=== PATIENT | female | born 1925 | race Caucasian/White ===

== ENCOUNTER 2017-04-16 22:50 | Inpatient (IN) ==
--- NOTE | 2017-04-16 23:02 | Emergency Department Note ---
Disposition Clinical Impression: Inability to perform activities of daily living Fall Qualifiers: Encounter type: initial encounter Qualified Code(s): W19.XXXA - Unspecified fall, initial encounter Dementia Qualifiers: Dementia type: unspecified type Dementia behavioral disturbance: without behavioral disturbance Qualified Code(s): F03.90 - Unspecified dementia without behavioral disturbance Disposition: Admitted As Inpatient Condition: Fair Referrals: Jay Jensen MD [Primary Care Provider] - Forms: ED Satisfaction Letter Time of Disposition: 01:55 Fall HPI - General Chief Complaint: ED Fall Stated Complaint: fall Time Seen by Provider: 04/16/17 22:52 Source: EMS Mode of arrival: EMS Limitations: other (baseline dementia) Nursing Notes Reviewed: Yes Vital Signs Reviewed: Yes - History of Present Illness HPI Narrative: Alert and nontoxic-appearing 89-year-old female is brought by EMS from a local assisted living facility for evaluation status post fall. EMS reports that the patient was found on the floor. The fall was unwitnessed. The patient is a very poor historian due to her baseline dementia. She has no complaints of pain at this time. I am unable to ascertain whether this was a mechanical fall or elsewise. She has an unknown LOC and it is unclear if there was any prolonged downtime. Pt Subjective Complaint: fall Fall Witnessed: no Place Fall Occurred: group home/SNF Loss of Consciousness: unsure Prolonged Down Time?: unclear - Related Data Home Medications Medication Instructions Recorded Confirmed Aspirin Enteric Coated [Aspirin EC] 81 mg PO DAILY 10/29/15 10/29/15 Cholecalciferol (D-3) [Vitamin D] 1,000 unit PO DAILY 10/29/15 10/29/15 Donepezil [Aricept] 5 mg PO HS 10/29/15 10/29/15 L. Acidophilus/Pectin, [place] 1 cap PO DAILY 10/29/15 10/29/15 [Acidophilus Probiotic Capsule] Losartan [Cozaar] 25 mg PO DAILY 10/29/15 10/29/15 Multivitamin [Multi-Day Vitamins] 1 tab PO DAILY 10/29/15 10/29/15 [place]-3/Dha/Epa/Fish Oil [Fish Oil 1,000 mg PO DAILY 10/29/15 10/29/15 1,000 mg Softgel] Polyethylene Glycol 3350 [MiraLAX] 17 gm PO DAILY 10/29/15 10/29/15 Potassium Gluconate 99 mg PO DAILY 10/29/15 10/29/15 Pravastatin Sodium [Pravachol] 40 mg PO DAILY 10/29/15 10/29/15 SitaGLIPtin [Januvia] 100 mg PO DAILY 10/29/15 10/29/15 Previous Rx's Medication Instructions Recorded LORazepam [Ativan] 0.5 mg PO HS #14 tablet 07/06/16 Acetaminophen [Tylenol] 500 mg PO Q6HR PRN #20 tablet 12/11/16 Allergies Allergy/AdvReac Type Severity Reaction Status Date / Time promethazine [From Phenergan] Allergy See Verified 04/16/17 22:51 Comments memantine AdvReac Shakiness Verified 07/05/16 22:16 Limitations: ROS unobtainable due to patients medical condition (Baseline dementia) Fall PMH - Past Medical History Medical history: Reports: dementia, diabetes, hyperlipidemia, hypertension Surgical history: Reports: hysterectomy Psychiatric history: Reports: no psych history - Social History Smoking Status: Never smoker Alcohol use: Reports: none Drug use: Reports: none Physical Exam - General Limitations: altered mental status General appearance: alert, in no apparent distress - Head Head exam: atraumatic, normocephalic, normal inspection - Expanded Head Exam Head exam physicial: Absent: laceration, abrasion, contusion, hematoma, raccoon eyes, Fuentes's sign - Eye Eye exam: Present: normal appearance, PERRL, EOMI. Absent: nystagmus - Expanded Eye Exam Pupils: Bilateral: regular, round, reactive, size (2) - Chest Chest inspection: Present: normal inspection, symmetric chest wall rise. Absent : tenderness - Respiratory Respiratory exam: Present: normal lung sounds bilaterally. Absent: respiratory distress, wheezes, stridor, accessory muscle use, prolonged expiratory phase - Cardiovascular Cardiovascular exam: Present: regular rate, normal rhythm, normal heart sounds - Abdominal Exam Abdominal exam: Present: soft, Non-Tender, normal bowel sounds - Extremities Exam Extremities exam: Present: normal inspection, full ROM. Absent: tenderness, pedal edema - Back Exam Back exam: Present: normal inspection. Absent: vertebral tenderness - Neurological Exam Neurological exam: Present: alert, oriented X3 - Psychiatric Psychiatric exam: Present: normal affect, normal mood - Skin Skin exam: Present: warm, dry, intact, normal color Course Course Narrative: CT of the abdomen and pelvis shows a large volume of stool in the rectum with findings Suggestive of stercoral colitis. And attempt was made to disimpact. No formed stool was present in the rectum. I have discussed this patient's case with Dr. Pitt. He suggests admission to the hospitalist service for further evaluation and probable social work consult, as the patient resides at an assisted living facility. I am concerned that the patient is unable to provide care of herself and perform essential activities of daily living due to her baseline dementia. 0154: I spoke with Dr. Duong, hospitalist animal control licensing worker. Dr. Duong has accepted the patient for admission under her care for further observation and evaluation of this presumed fall, as well as inability to perform activities of daily living. Vital Signs Temperature 98.7 F 04/16/17 22:55 Pulse Rate 73 04/16/17 22:55 Respiratory Rate 18 04/16/17 22:55 Blood Pressure 104/65 04/16/17 22:55 O2 Sat by Pulse Oximetry 90 04/16/17 22:55 Temperature 98.7 F 04/16/17 22:55 Pulse Rate 82 04/17/17 00:31 Respiratory Rate 20 04/17/17 00:31 Blood Pressure 150/89 04/17/17 00:31 O2 Sat by Pulse Oximetry 95 04/17/17 00:31 Oxygen Delivery Oxygen Delivery Room Air Fall - Medical Records Medical records reviewed: Yes I reviewed the patient's medical records. - Lab Data Lab results reviewed: Yes I reviewed the patient's lab results. Lab results narrative: Laboratory Last Values WBC 4.9 K/mcL (4.3-11.1) 04/16/17 23:33 RBC 4.21 M/mcL (3.82-4.97) 04/16/17 23:33 Hgb 12.4 g/dL (11.5-15.4) 04/16/17 23:33 Hct 38.6 % (35.3-44.9) 04/16/17 23:33 MCV 91.7 fL (83.0-100.0) 04/16/17 23:33 MCH 29.5 pg (28.0-33.3) 04/16/17 23:33 MCHC 32.1 g/dL (31.6-35.5) 04/16/17 23:33 RDW 12.9 % (11.5-14.5) 04/16/17 23:33 Plt Count 155 K/mcL (140-400) 04/16/17 23:33 MPV 10.9 fL (9.4-12.4) 04/16/17 23:33 Seg Neutrophils % 60.0 % 04/16/17 23:33 Lymphocytes % 22.0 % 04/16/17 23:33 Monocytes % 18.0 % 04/16/17 23:33 Neutrophils # 2.9 K/mcL (1.6-8.9) 04/16/17 23:33 Lymphocytes # 1.1 K/mcL (0.6-4.6) 04/16/17 23:33 Monocytes # 0.9 K/mcL (0.0-1.3) 04/16/17 23:33 Reactive Lymphocytes Present (Not Present) A 04/16/17 23:33 Platelet Estimate Normal (Normal) 04/16/17 23:33 PT 12.0 Seconds (9.4-12.1) 04/16/17 23:33 INR 1.1 04/16/17 23:33 APTT 32.2 Seconds (26.0-36.0) 04/16/17 23:33 Sodium 137 mEq/L (136-145) 04/16/17 23:33 Potassium 3.9 mEq/L (3.5-5.1) 04/16/17 23:33 Chloride 105 mEq/L (98-107) 04/16/17 23:33 Carbon Dioxide 29 mEq/L (23-29) 04/16/17 23:33 BUN 24 mg/dL (8-23) H 04/16/17 23:33 Creatinine 0.86 mg/dL (0.60-1.20) 04/16/17 23:33 Est GFR ( Amer) > 60 (> 60) 04/16/17 23:33 Est GFR (Non-Af Amer) > 60 (> 60) 04/16/17 23:33 BUN/Creatinine Ratio 28 (6-26) H 04/16/17 23:33 Glucose 117 mg/dL (70-105) H 04/16/17 23:33 Calculated Osmolality 289 (280-300) 04/16/17 23:33 Calcium 9.0 mg/dL (8.6-10.3) 04/16/17 23:33 Creatine Kinase 79 Units/L (30-223) 04/16/17 23:33 Troponin I < 0.03 ng/mL (< 0.04) 04/16/17 23:33 Urine Color Yellow (Yellow) 04/17/17 00:00 Urine Clarity Cloudy (Clear) A 04/17/17 00:00 Urine pH 6.5 pH Units (5.0-8.0) 04/17/17 00:00 Ur Specific [place] 1.023 (1.010-1.025) 04/17/17 00:00 Urine Protein Negative mg/dL (Neg-Trace) 04/17/17 00:00 Urine Glucose (UA) Normal mg/dL (Normal) 04/17/17 00:00 Urine Ketones Negative mg/dL (Negative) 04/17/17 00:00 Urine Blood Trace (Negative) H 04/17/17 00:00 Urine Nitrite Negative (Negative) 04/17/17 00:00 Urine Bilirubin Negative (Negative) 04/17/17 00:00 Urine Urobilinogen Normal mg/dL (Normal) 04/17/17 00:00 Ur Leukocyte Esterase Moderate (Negative) H 04/17/17 00:00 Urine Microscopic RBC 5-15 per hpf (0-3) H 04/17/17 00:00 Urine Microscopic WBC 50-100 per hpf (0-3) H 04/17/17 00:00 Ur Squamous Epith Cells Many per lpf (None-Few) H 04/17/17 00:00 Ur Renal Epithelial Cell Few per hpf (None-Few) 04/17/17 00:00 Urine Bacteria None Seen per hpf (None-Few) 04/17/17 00:00 Hyaline Casts Moderate per lpf (None-Few) H 04/17/17 00:00 Ur Culture Indicated? NO (NO) 04/17/17 00:00 Result diagrams: 04/16/17 23:33 04/16/17 23:33 Lab Results 04/16/17 04/16/17 04/16/17 Range/Units 23:33 23:33 23:33 WBC 4.9 (4.3-11.1) K/mcL RBC 4.21 (3.82-4.97) M/mcL Hgb 12.4 (11.5-15.4) g/dL Hct 38.6 (35.3-44.9) % MCV 91.7 (83.0-100.0) fL MCH 29.5 (28.0-33.3) pg MCHC 32.1 (31.6-35.5) g/dL RDW 12.9 (11.5-14.5) % Plt Count 155 (140-400) K/mcL MPV 10.9 (9.4-12.4) fL Seg Neutrophils % 60.0 % Lymphocytes % 22.0 % Monocytes % 18.0 % Neutrophils # 2.9 (1.6-8.9) K/mcL Lymphocytes # 1.1 (0.6-4.6) K/mcL Monocytes # 0.9 (0.0-1.3) K/mcL Reactive Lymphocytes Present A (Not Present) Platelet Estimate Normal (Normal) PT 12.0 (9.4-12.1) Seconds INR 1.1 APTT 32.2 (26.0-36.0) Seconds Sodium 137 (136-145) mEq/L Potassium 3.9 (3.5-5.1) mEq/L Chloride 105 (98-107) mEq/L Carbon Dioxide 29 (23-29) mEq/L BUN 24 H (8-23) mg/dL Creatinine 0.86 (0.60-1.20) mg/dL Est GFR ( Amer) > 60 (> 60) Est GFR (Non-Af Amer) > 60 (> 60) BUN/Creatinine Ratio 28 H (6-26) Glucose 117 H (70-105) mg/dL Calculated Osmolality 289 (280-300) Calcium 9.0 (8.6-10.3) mg/dL Creatine Kinase (30-223) Units/L Troponin I (< 0.04) ng/mL Urine Color (Yellow) Urine Clarity (Clear) Urine pH (5.0-8.0) pH Units Ur Specific [place] (1.010-1.025) Urine Protein (Neg-Trace) mg/dL Urine Glucose (UA) (Normal) mg/dL Urine Ketones (Negative) mg/dL Urine Blood (Negative) Urine Nitrite (Negative) Urine Bilirubin (Negative) Urine Urobilinogen (Normal) mg/dL Ur Leukocyte Esterase (Negative) Urine Microscopic RBC (0-3) per hpf Urine Microscopic WBC (0-3) per hpf Ur Squamous Epith Cells (None-Few) per lpf Ur Renal Epithelial Cell (None-Few) per hpf Urine Bacteria (None-Few) per hpf Hyaline Casts (None-Few) per lpf Ur Culture Indicated? (NO) 04/16/17 04/16/17 04/17/17 Range/Units 23:33 23:33 00:00 WBC (4.3-11.1) K/mcL RBC (3.82-4.97) M/mcL Hgb (11.5-15.4) g/dL Hct (35.3-44.9) % MCV (83.0-100.0) fL MCH (28.0-33.3) pg MCHC (31.6-35.5) g/dL RDW (11.5-14.5) % Plt Count (140-400) K/mcL MPV (9.4-12.4) fL Seg Neutrophils % % Lymphocytes % % Monocytes % % Neutrophils # (1.6-8.9) K/mcL Lymphocytes # (0.6-4.6) K/mcL Monocytes # (0.0-1.3) K/mcL Reactive Lymphocytes (Not Present) Platelet Estimate (Normal) PT (9.4-12.1) Seconds INR APTT (26.0-36.0) Seconds Sodium (136-145) mEq/L Potassium (3.5-5.1) mEq/L Chloride (98-107) mEq/L Carbon Dioxide (23-29) mEq/L BUN (8-23) mg/dL Creatinine (0.60-1.20) mg/dL Est GFR ( Amer) (> 60) Est GFR (Non-Af Amer) (> 60) BUN/Creatinine Ratio (6-26) Glucose (70-105) mg/dL Calculated Osmolality (280-300) Calcium (8.6-10.3) mg/dL Creatine Kinase 79 (30-223) Units/L Troponin I < 0.03 (< 0.04) ng/mL Urine Color Yellow (Yellow) Urine Clarity Cloudy A (Clear) Urine pH 6.5 (5.0-8.0) pH Units Ur Specific [place] 1.023 (1.010-1.025) Urine Protein Negative (Neg-Trace) mg/dL Urine Glucose (UA) Normal (Normal) mg/dL Urine Ketones Negative (Negative) mg/dL Urine Blood Trace H (Negative) Urine Nitrite Negative (Negative) Urine Bilirubin Negative (Negative) Urine Urobilinogen Normal (Normal) mg/dL Ur Leukocyte Esterase Moderate H (Negative) Urine Microscopic RBC 5-15 H (0-3) per hpf Urine Microscopic WBC 50-100 H (0-3) per hpf Ur Squamous Epith Cells Many H (None-Few) per lpf Ur Renal Epithelial Cell Few (None-Few) per hpf Urine Bacteria None Seen (None-Few) per hpf Hyaline Casts Moderate H (None-Few) per lpf Ur Culture Indicated? NO (NO) - Radiology Data Radiology results reviewed: Yes I reviewed the patient's radiology results. Chest X-Ray 04/16/17 22:57 IMPRESSION: No acute disease. D/ / Rodrigue Ruiz MD / Rodrigue Ruiz MD Interpreting Provider: Rodrigue Ruiz MD Head CT 04/16/17 22:57 IMPRESSION: No acute intracranial abnormality. D/ / Holland Nevarez MD / Holland Nevarez MD Interpreting Provider: Holland Nevarez MD Pelvis X-Ray 04/16/17 22:57 IMPRESSION: No definite fracture. D/ / Rodrigue Ruiz MD / Rodrigue Ruiz MD Interpreting Provider: Rodrigue Ruiz MD Cervical Spine CT 04/16/17 23:00 IMPRESSION: No acute abnormality of the cervical spine. D/ / Rodrigue Ruiz MD / Rodrigue Ruiz MD Interpreting Provider: Rodrigue Ruiz MD Abdomen/Pelvis CT 04/16/17 23:25 IMPRESSION: No acute abnormality detected within the abdomen pelvis. Evidence of rectal impaction. Despite that there is a mild mural thickening of the rectum, suggesting stercoral colitis. Stable abdominal aortic aneurysm. Recommendations below. RECOMMENDATIONS: Managing Abdominal Aortic Aneurysms 3.5-3.9 cm: Imaging surveillance every 1 year. Reference: J Vasc Surg. 2008;50(4 Suppl):S2-49 D/ / Holland Nevarez MD / Holland Nevarez MD Interpreting Provider: Holland Nevarez MD - EKG Data EKG attestation: Yes I reviewed and interpreted this EKG. EKG results narrative: EKG reviewed by Dr. Pitt as well. EKG shows a sinus rhythm with left axis deviation and a right bundle branch block at a rate of 74 bpm. NC interval 194 , QRS duration 126, QT/QTc interval 409/436. No ectopy noted. No STEMI. No significant changes when compared to an EKG dated 07/05/16. Attestation Statement - Attestation Attestation: I, Fidel Pitt DO have provided [id number] time during the care of this patient. Detailed review the presentation, symptoms, medical history were discussed and reviewed with the mid-level provider Migel Ogden PA-C/[place]. Medical intervention labs and imaging studies were reviewed in detail. See full documentation of physical exam and course of care in the mid-level provider's note. I agree with the determined course of care, medical intervention and disposition put forth by the mid-level provider. See below documentation for changes or alterations in documentation. 89-year-old female presents from group home for evaluation of a fall. Patient had unwitnessed fall at the nursing facility. She was on the ground. There is no visible signs of trauma or injury. She is complaining of pain at that time. Patient has unknown medical history this point except for records that were collected and transported EMS. Because the patient's presentation CT imaging of the head and neck as well as abnormal be completed on plain films of the pelvis. Physical exam is otherwise unremarkable. Head is atraumatic pupils are equal and reactive to light affected muscles are intact. Oropharynx is patent trachea is midline she has no specific point tenderness over the cervical thoracic or lumbar spine. She has no tenderness to palpation of the chest wall. Lungs are clear heart is regular abdomen is soft but she does describe some discomfort with palpation. Hips appear to be stable she has no gross deformity or injury to lower extremities with normal sensation according to her. Patient has a baseline dementia so is difficult ascertain for physical exam or presenting issue. Imaging modality along with laboratory screening workup and evaluation to be completed. Patient will most likely had disposition established once imaging modalities workup are resulted. See detailed documentation of physical exam, medical intervention medical decision making and disposition of the mid-level provider's note.
[2017-04-16 23:41] LABS: Hematocrit 38.6 % (35.3-44.9); Hemoglobin 12.4 g/dL (11.5-15.4); Mean Corpuscular HGB Conc 32.1 g/dL (31.6-35.5); Mean Corpuscular Hemoglobin 29.5 pg (28.0-33.3); Mean Corpuscular Volume 91.7 fL (83.0-100.0); Mean Platelet Volume 10.9 fL (9.4-12.4); Neutrophils # 2.9 K/mcL (1.6-8.9); Platelet Count 155 K/mcL (140-400); Red Blood Count 4.21 M/mcL (3.82-4.97); Red Cell Distribution Width 12.9 % (11.5-14.5)
[2017-04-16 23:47] LABS: INR 1.1
[2017-04-16 23:49] LABS: Activated Partial Thrombo Time 32.2 Seconds (26.0-36.0)
[2017-04-17 00:01] LABS: BUN/Creatinine Ratio 28 (6-26); Blood Urea Nitrogen 24 mg/dL (8-23); Carbon Dioxide 29 mEq/L (23-29); Chloride 105 mEq/L (98-107); Glucose 117 mg/dL (70-105); Osmolality,Calculated 289 (280-300); Potassium 3.9 mEq/L (3.5-5.1); Sodium 137 mEq/L (136-145); eGFR For African Americans > 60 (> 60); eGFR For Non-African Americans > 60 (> 60)
[2017-04-17 00:03] LABS: Lymphocytes # 1.1 K/mcL (0.6-4.6); Monocytes # 0.9 K/mcL (0.0-1.3)
[2017-04-17 00:04] LABS: Platelet Estimate Normal (Normal); Reactive Lymphocytes Present (Not Present)
[2017-04-17 00:18] LABS: Bilirubin,Urine Negative (Negative); Blood,Urine Trace (Negative); Clarity,Urine Cloudy (Clear); Color,Urine Yellow (Yellow); Glucose,Urine (UA) Normal (Normal); Ketones,Urine Negative (Negative); Leukocyte Esterase,Urine Moderate (Negative); Nitrite,Urine Negative (Negative); PH,Urine 6.5 pH Units (5.0-8.0); Protein,Urine Negative (Neg-Trace); Specific Gravity,Urine 1.023 (1.010-1.025); Urobilinogen,Urine Normal (Normal)
[2017-04-17 00:20] LABS: Bacteria,Urine None Seen per hpf (None-Few); Hyaline Casts,Urine Moderate per lpf (None-Few); Squamous Epithelial Cell,Urine Many per lpf (None-Few); WBC,Urine 50-100 per hpf (0-3)
[2017-04-17 00:34] LABS: Renal Epithelial Cells,Urine Few per hpf (None-Few)
[2017-04-17] MEDS ORDERED: Naloxone 0.4 MG/ML INJ IVP PRN (02:41)
[2017-04-17] MEDS ORDERED: Acetaminophen 325 MG TABLET PO PRN (02:43)
[2017-04-17] MEDS ORDERED: Dextrose Gel 15 GM/37.5 ML TUBE PO PRN ×2 (02:46)
[2017-04-17] MEDS ORDERED: *HR* Dextrose 50 % in Water (Syg) 50 ML SYRINGE IVP PRN (02:46)
[2017-04-17] MEDS ORDERED: D5% in Water 1,000 ML IVC PRN (02:46)
[2017-04-17] MEDS ORDERED: *HR* LORazepam 0.5 MG TABLET PO PRN (02:47)
--- NOTE | 2017-04-17 02:57 | Internal Med History&Physical ---
Date of Encounter: 04/17/17 Time of Encounter: 02:00 Assessment and Plan (1) Dementia Current visit: Yes Status: Acute Cont home med. Fall precautions. Qualifiers: Dementia type: unspecified type Dementia behavioral disturbance: without behavioral disturbance Qualified Code(s): F03.90 - Unspecified dementia without behavioral disturbance (2) Discharge planning issues Current visit: No Status: Acute Pt may need ECF for fci care. Place PT/OT and SW consult. (3) DVT prophylaxis Current visit: No Status: Acute EPCD. No AC b/o fall. (4) Fall Current visit: Yes Status: Acute Pt was found on floor. CK level WNL. - Fall precaution. - Pt seems on pain on passively move her limb. CT head, neck, XR chest and pelvis negative far acute fracture. - PT/OT and SW consult for placement. - Repeat CK in AM Qualifiers: Encounter type: initial encounter Qualified Code(s): W19.XXXA - Unspecified fall, initial encounter (5) UTI (urinary tract infection) Current visit: Yes Status: Acute Pt cannot define symptomatic or asymptomatic. No WBC elevation. Empirically place rocephin iv for 3 days. Qualifiers: Urinary tract infection type: acute cystitis Hematuria presence: without hematuria Qualified Code(s): N30.00 - Acute cystitis without hematuria (6) Constipation Current visit: Yes Status: Acute CT abd shows rectal stool impact. Cont home med miralax. Lactulose po once. Consider enema if pt has no BM. Qualifiers: Constipation type: other constipation type Qualified Code(s): K59.09 - Other constipation Internal Medicine - H&P: HPI Chief complaint: Fall Admitted From: Long-term Nursing Facility Plans for Post Hospital Care: Transfer Long-Term Facility History of present illness: Ms. Smith is a 89 year old female with severe dementia sent [facility] from [facility] for unwitnessed fall. Pt is demented and no family members at bedside. Hx is from transfer documentation. Pt has fall and was found on floor today. Not know for how long pt is down. Pt looks comfortable when I saw her. Awake, alert but totally disoriented. Seems no pain on physical exam. According to transfer documentation, pt is DNR, but not sprecified if pt is DNI. Will place DNRCCA at this point. Past Med Surg Social Fam HX - Past Medical History Medical history: dementia, diabetes, hyperlipidemia, hypertension Psychiatric history: no psych history - Past Surgical History Surgical History: hysterectomy - Social History Smoking Status: Never smoker Smokeless Tobacco Status: No Alcohol use: none Drug use: none - Family History Father Living Status: Hx Family Cardiac Disorders: Yes (Stroke) Mother Family Member Ethnicity: Non- Living Status: Internal Medicine - H&P: Meds Aspirin Enteric Coated [Aspirin EC] 81 mg PO DAILY 10/29/15 [History] Cholecalciferol (D-3) [Vitamin D] 1,000 unit PO DAILY 10/29/15 [History] L. Acidophilus/Pectin, [place] [Acidophilus Probiotic Capsule] 1 cap PO DAILY 02/03 [History] Multivitamin [Multi-Day Vitamins] 1 tab PO DAILY 10/29/15 [History] Polyethylene Glycol 3350 [MiraLAX] 17 gm PO DAILY 10/29/15 [History] Acetaminophen [Tylenol] 500 mg PO Q6HR PRN #20 tablet 12/11/16 [Rx] Citalopram [CeleXA] 20 mg PO DAILY 04/17/17 [History] LORazepam [Ativan] 0.5 mg PO HS PRN 04/17/17 [History] Pravastatin Sodium [Pravachol] 40 mg PO HS 04/17/17 [History] 3 Allergy/AdvReac Type Severity Reaction Status Date / Time promethazine [From Phenergan] Allergy See Verified 04/16/17 22:51 Comments memantine AdvReac Shakiness Verified 07/05/16 22:16 All Systems PM: A 10-system review of systems was performed and is negative for pertinent findings except as documented above in the HPI. - Constitutional Vitals: Temp Pulse Resp BP Pulse Ox 98.7 F 79 16 129/80 92 04/16/17 22:55 04/17/17 01:58 04/17/17 02:40 04/17/17 02:40 04/17/17 01:58 General appearance: Present: A&O X 0, pleasant, no acute distress - Head Head exam: Present: atraumatic, normocephalic - Eye Eye exam: Present: PERRL, conjuntiva pink, sclera anicteric Pupils: Present: PERRL - Neck Neck exam general surgery: Present: supple, trachea midline. Absent: lymphadenopathy - Respiratory Respiratory exam: Present: CTAB. Absent: accessory muscle use, rales, rhonchi, wheezes - Cardiovascular Cardiovascular exam: Present: RRR, +S1, +S2. Absent: diastolic murmur, gallop, rubs, systolic murmur - GI/Abdominal GI/Abdominal exam: Present: normal bowel sounds, soft, no peritoneal signs. Absent: distended, tenderness - Extremities Exam Extremities exam: Present: warm, radial pulses palpable and symmetrical. Absent : calf tenderness, cyanotic, pedal edema - Neurological Exam Neurological exam: Present: CN II-XII intact, oriented X3, no focal deficits. Absent: pronater drift, facial droop, speech deficit - Skin Skin exam: Present: dry, intact Internal Med - H&P Results - Labs CBC & Chem 7: 04/16/17 23:33 04/16/17 23:33 - EKG Data -: EKG Interpreted by Myself (RBBB, no change with previous EKG.) EKG shows normal: sinus rhythm
[2017-04-17] MEDS ORDERED: Lactulose Oral Soln 20 GM/30 ML UDC PO ONE (03:07)
[2017-04-17] MEDS: 0.9 % Sodium Chloride 1,000 ML IVC SCH ×2 (04:00→22:13)
[2017-04-17] MEDS: cefTRIAXone 1,000 MG in Water for inj. (sterile) 10 ML IVP SCH (04:01)
[2017-04-17 06:07] LABS: Hematocrit 37.8 % (35.3-44.9); Hemoglobin 12.4 g/dL (11.5-15.4); Mean Corpuscular HGB Conc 32.8 g/dL (31.6-35.5); Mean Corpuscular Volume 91.3 fL (83.0-100.0); Mean Platelet Volume 11.2 fL (9.4-12.4); Platelet Count 154 K/mcL (140-400); Red Blood Count 4.14 M/mcL (3.82-4.97); Red Cell Distribution Width 12.9 % (11.5-14.5)
[2017-04-17 06:26] LABS: BUN/Creatinine Ratio 29 (6-26); Blood Urea Nitrogen 21 mg/dL (8-23); Calcium 8.7 mg/dL (8.6-10.3); Carbon Dioxide 26 mEq/L (23-29); Chloride 107 mEq/L (98-107); Glucose 114 mg/dL (70-105); Osmolality,Calculated 290 (280-300); Potassium 3.7 mEq/L (3.5-5.1); Sodium 138 mEq/L (136-145); eGFR For African Americans > 60 (> 60); eGFR For Non-African Americans > 60 (> 60)
[2017-04-17] MEDS ORDERED: Insulin LISPRO 300 UNITS/3 ML VIAL SQ SCH (07:30)
[2017-04-17 07:51] LABS: Lymphocytes # 0.5 K/mcL (0.6-4.6); Monocytes # 0.3 K/mcL (0.0-1.3); Neutrophils # 3.6 K/mcL (1.6-8.9)
[2017-04-17 07:52] LABS: Platelet Estimate Normal (Normal)
[2017-04-17] MEDS: Multivit/Ca/Min/Fe/FA 1 TAB TABLET PO SCH (09:11)
[2017-04-17] MEDS: Lactobacillus 1 EACH CAP.SPRINK PO SCH (09:11)
[2017-04-17] MEDS: Aspirin Enteric Coated 81 MG Tablet PO SCH (09:11)
[2017-04-17] MEDS: Cholecalciferol (D-3) 1,000 UNIT TABLET PO SCH (09:11)
[2017-04-18] MEDS: cefTRIAXone 1,000 MG in Water for inj. (sterile) 10 ML IVP SCH (02:41)
[2017-04-18 05:59] LABS: Hemoglobin 12.3 g/dL (11.5-15.4); Mean Corpuscular HGB Conc 32.4 g/dL (31.6-35.5); Mean Corpuscular Hemoglobin 29.2 pg (28.0-33.3); Mean Corpuscular Volume 90.3 fL (83.0-100.0); Mean Platelet Volume 10.9 fL (9.4-12.4); Platelet Count 135 K/mcL (140-400); Red Blood Count 4.21 M/mcL (3.82-4.97); Red Cell Distribution Width 13.1 % (11.5-14.5)
[2017-04-18 06:03] LABS: BUN/Creatinine Ratio 25 (6-26); Blood Urea Nitrogen 15 mg/dL (8-23); Calcium 8.3 mg/dL (8.6-10.3); Carbon Dioxide 23 mEq/L (23-29); Chloride 104 mEq/L (98-107); Glucose 114 mg/dL (70-105); Osmolality,Calculated 280 (280-300); Potassium 3.8 mEq/L (3.5-5.1); Sodium 134 mEq/L (136-145); eGFR For African Americans > 60 (> 60); eGFR For Non-African Americans > 60 (> 60)
[2017-04-18 07:20] LABS: Platelet Estimate Slight Decrease (Normal)
[2017-04-18 07:22] LABS: Lymphocytes # 1.1 K/mcL (0.6-4.6); Monocytes # 0.8 K/mcL (0.0-1.3); Neutrophils # 2.4 K/mcL (1.6-8.9)
[2017-04-18 07:23] LABS: Reactive Lymphocytes Present (Not Present)
[2017-04-18] MEDS: Multivit/Ca/Min/Fe/FA 1 TAB TABLET PO SCH (09:20)
[2017-04-18] MEDS: Cholecalciferol (D-3) 1,000 UNIT TABLET PO SCH (09:20)
[2017-04-18] MEDS: Lactobacillus 1 EACH CAP.SPRINK PO SCH (09:20)
[2017-04-18] MEDS: Aspirin Enteric Coated 81 MG Tablet PO SCH (09:20)
--- NOTE | 2017-04-18 09:31 | Electrocardiograph Report ---
[address] [address] Test Date: 2017-04-16 Pat Name: Misty Smith Department: 104 Room: 3A52 Gender: F [employer] Leasing [employer]: : [id number] Requested By: Sarah Blankenship Order Number: [id number] Reading MD: Suad Alanis Measurements Intervals [place] Rate: 74 P: 74 MA: 194 QRS: -43 QRSD: 126 T: -12 QT: 409 QTc: 436 Interpretive Statements SINUS RHYTHM LEFT AXIS DEVIATION RIGHT BUNDLE BRANCH BLOCK Electronically Signed On 04-18-2017 9:30:14 EST by Suad Alanis
[2017-04-18] MEDS: Ipratropium/Albuterol Neb 3 ML IH SCH ×2 (15:43→21:10)
--- NOTE | 2017-04-18 17:24 | Internal Med Progress Note ---
Date of Encounter: 04/18/17 Time of Encounter: 17:22 - Assessment and plan (1) Dementia Current Visit: Yes Status: Acute Assessment and plan: Stable at patient's baseline. Patient came from assisted living but she needs placement. Qualifiers: Dementia type: unspecified type Dementia behavioral disturbance: without behavioral disturbance Qualified Code(s): F03.90 - Unspecified dementia without behavioral disturbance (2) Discharge planning issues Current Visit: No Status: Acute Assessment and plan: PT/OT recs SNF/ECF. Pending placement. (3) UTI (urinary tract infection) Current Visit: Yes Status: Acute Assessment and plan: Rocephin for toal 3 days therapy. Qualifiers: Urinary tract infection type: acute cystitis Hematuria presence: without hematuria Qualified Code(s): N30.00 - Acute cystitis without hematuria (4) Constipation Current Visit: Yes Status: Acute Assessment and plan: CT abdomen/pelvis notes fecal impaction. I did digital rectal exam today and there was no fecal impaction appreciated. This may have resolved after getting bowel prep. Qualifiers: Constipation type: other constipation type Qualified Code(s): K59.09 - Other constipation (5) DVT prophylaxis Current Visit: No Status: Acute Assessment and plan: SCD - Subjective Interval history: No acute events. - Constitutional Vitals: Temp Pulse Resp BP Pulse Ox 98 F 72 18 146/78 93 04/18/17 15:56 04/18/17 15:56 04/18/17 15:56 04/18/17 15:56 04/18/17 15:56 General appearance: Present: A&O X 1, pleasant, no acute distress Exam: - Head Head exam: Present: atraumatic, normocephalic - Eye Eye exam: Present: PERRL, conjuntiva pink, sclera anicteric Pupils: Present: PERRL - Neck Neck exam general surgery: Present: supple, trachea midline. Absent: lymphadenopathy - Respiratory Respiratory exam: Present: CTAB. Absent: accessory muscle use, rales, rhonchi, wheezes - Cardiovascular Cardiovascular exam: Present: RRR, +S1, +S2. Absent: diastolic murmur, gallop, rubs, systolic murmur - GI/Abdominal GI/Abdominal exam: Present: normal bowel sounds, soft, no peritoneal signs. Absent: distended, tenderness - Extremities Exam Extremities exam: Present: warm, radial pulses palpable and symmetrical. Absent : calf tenderness, cyanotic, pedal edema - Neurological Exam Neurological exam: Present: CN II-XII intact, oriented X3, no focal deficits. Absent: pronater drift, facial droop, speech deficit - Skin Skin exam: Present: dry, intact Internal Medicine: Result - Labs CBC & Chem 7: 04/18/17 05:29 04/18/17 05:29 Labs: Short CBC 04/18/17 Range/Units 05:29 WBC 4.2 L (4.3-11.1) K/mcL Hgb 12.3 (11.5-15.4) g/dL Hct 38.0 (35.3-44.9) % Plt Count 135 L (140-400) K/mcL Neutrophils # 2.4 (1.6-8.9) K/mcL BMP 04/18/17 05:29 Sodium 134 L Potassium 3.8 Chloride 104 Carbon Dioxide 23 BUN 15 Creatinine 0.61 Glucose 114 H Calcium 8.3 L - ABG Interpretation ABG results: PT/INR, D-dimer PT 12.0 Seconds (9.4-12.1) 04/16/17 23:33 - VTE Documentation of Mechanical Device: Intermittent pneumatic compression device Consult Discharge Plan - Plan Referrals: Jay Jensen MD [Primary Care Provider] - 04/29/17 2:00 am
[2017-04-18] MEDS: Insulin LISPRO 300 UNITS/3 ML VIAL SQ SCH ×2 (19:24→20:44)
[2017-04-18] MEDS: 0.9 % Sodium Chloride 1,000 ML IVC SCH (19:28)
[2017-04-19] MEDS: cefTRIAXone 1,000 MG in Water for inj. (sterile) 10 ML IVP SCH (03:11)
[2017-04-19] MEDS: Ipratropium/Albuterol Neb 3 ML IH SCH ×4 (04:44→22:13)
[2017-04-19] MEDS: Insulin LISPRO 300 UNITS/3 ML VIAL SQ SCH ×4 (08:16→21:41)
[2017-04-19] MEDS: Multivit/Ca/Min/Fe/FA 1 TAB TABLET PO SCH (08:23)
[2017-04-19] MEDS: Cholecalciferol (D-3) 1,000 UNIT TABLET PO SCH (08:23)
[2017-04-19] MEDS: Lactobacillus 1 EACH CAP.SPRINK PO SCH (08:23)
[2017-04-19] MEDS: Aspirin Enteric Coated 81 MG Tablet PO SCH (08:23)
--- NOTE | 2017-04-19 23:48 | Internal Med Progress Note ---
Date of Encounter: 04/19/17 Time of Encounter: 11:46 - Assessment and plan (1) Dementia Current Visit: Yes Status: Acute Assessment and plan: Stable at patient's baseline. Patient came from assisted living but she needs placement. Qualifiers: Dementia type: unspecified type Dementia behavioral disturbance: without behavioral disturbance Qualified Code(s): F03.90 - Unspecified dementia without behavioral disturbance (2) Discharge planning issues Current Visit: No Status: Acute Assessment and plan: PT/OT recs SNF/ECF. Pending placement. (3) UTI (urinary tract infection) Current Visit: Yes Status: Acute Assessment and plan: Rocephin for toal 3 days therapy. Qualifiers: Urinary tract infection type: acute cystitis Hematuria presence: without hematuria Qualified Code(s): N30.00 - Acute cystitis without hematuria (4) Constipation Current Visit: Yes Status: Acute Assessment and plan: CT abdomen/pelvis notes fecal impaction. I did digital rectal exam today and there was no fecal impaction appreciated. This may have resolved after getting bowel prep. Qualifiers: Constipation type: other constipation type Qualified Code(s): K59.09 - Other constipation (5) DVT prophylaxis Current Visit: No Status: Acute Assessment and plan: SCD - Subjective Interval history: No acute events. - Constitutional Vitals: Temp Pulse Resp BP Pulse Ox 99.2 F 110 16 131/76 91 04/19/17 18:52 04/19/17 18:52 04/19/17 22:14 04/19/17 18:52 04/19/17 22:14 General appearance: Present: A&O X 1, pleasant, no acute distress Exam: - Head Head exam: Present: atraumatic, normocephalic - Eye Eye exam: Present: PERRL, conjuntiva pink, sclera anicteric Pupils: Present: PERRL - Neck Neck exam general surgery: Present: supple, trachea midline. Absent: lymphadenopathy - Respiratory Respiratory exam: Present: CTAB. Absent: accessory muscle use, rales, rhonchi, wheezes - Cardiovascular Cardiovascular exam: Present: RRR, +S1, +S2. Absent: diastolic murmur, gallop, rubs, systolic murmur - GI/Abdominal GI/Abdominal exam: Present: normal bowel sounds, soft, no peritoneal signs. Absent: distended, tenderness - Extremities Exam Extremities exam: Present: warm, radial pulses palpable and symmetrical. Absent : calf tenderness, cyanotic, pedal edema - Neurological Exam Neurological exam: Present: CN II-XII intact, oriented X3, no focal deficits. Absent: pronater drift, facial droop, speech deficit - Skin Skin exam: Present: dry, intact Internal Medicine: Result - Labs CBC & Chem 7: 04/18/17 05:29 04/18/17 05:29 - ABG Interpretation ABG results: PT/INR, D-dimer PT 12.0 Seconds (9.4-12.1) 04/16/17 23:33 - VTE Documentation of Mechanical Device: Intermittent pneumatic compression device Consult Discharge Plan - Plan Referrals: Jay Jensen MD [Primary Care Provider] - 04/29/17 2:00 am
[2017-04-20] MEDS: cefTRIAXone 1,000 MG in Water for inj. (sterile) 10 ML IVP SCH (03:22)
[2017-04-20] MEDS: Ipratropium/Albuterol Neb 3 ML IH SCH ×4 (04:28→22:02)
[2017-04-20] MEDS: Insulin LISPRO 300 UNITS/3 ML VIAL SQ SCH ×4 (07:42→21:39)
[2017-04-20] MEDS: Multivit/Ca/Min/Fe/FA 1 TAB TABLET PO SCH (08:41)
[2017-04-20] MEDS: Aspirin Enteric Coated 81 MG Tablet PO SCH (08:41)
[2017-04-20] MEDS: Lactobacillus 1 EACH CAP.SPRINK PO SCH (08:41)
[2017-04-20] MEDS: Cholecalciferol (D-3) 1,000 UNIT TABLET PO SCH (08:41)
[2017-04-20 10:42] LABS: Basophils % 0.2 %; Hematocrit 39.5 % (35.3-44.9); Immature Granulocytes % 0.3 % (0-4); Immature Platelets 5.4 % (1.1-6.1); Lymphocytes # 1.1 K/mcL (0.6-4.6); Lymphocytes % 17.9 %; Mean Corpuscular HGB Conc 32.9 g/dL (31.6-35.5); Mean Corpuscular Hemoglobin 29.3 pg (28.0-33.3); Monocytes % 13.4 %; Neutrophils # 4.3 K/mcL (1.6-8.9); Platelet Count 146 K/mcL (140-400); Red Blood Count 4.44 M/mcL (3.82-4.97); Segmented Neutrophils % 68.2 %
[2017-04-20 10:44] LABS: Monocytes # 0.8 K/mcL (0.0-1.3)
[2017-04-20 11:14] LABS: BUN/Creatinine Ratio 19 (6-26); Blood Urea Nitrogen 14 mg/dL (8-23); Calcium 8.6 mg/dL (8.6-10.3); Carbon Dioxide 26 mEq/L (23-29); Chloride 103 mEq/L (98-107); Glucose 121 mg/dL (70-105); Osmolality,Calculated 284 (280-300); Potassium 3.4 mEq/L (3.5-5.1); Sodium 136 mEq/L (136-145); eGFR For African Americans > 60 (> 60); eGFR For Non-African Americans > 60 (> 60)
--- NOTE | 2017-04-20 21:26 | Internal Med Progress Note ---
Date of Encounter: 04/20/17 Time of Encounter: 12:44 - Assessment and plan (1) Dementia Current Visit: Yes Status: Acute Assessment and plan: Stable at patient's baseline. Patient came from assisted living but she needs placement. Qualifiers: Dementia type: unspecified type Dementia behavioral disturbance: without behavioral disturbance Qualified Code(s): F03.90 - Unspecified dementia without behavioral disturbance (2) UTI (urinary tract infection) Current Visit: Yes Status: Acute Assessment and plan: Patient stable but did have fever overnight Tmax 100.5. Will repeat UA and urine culture. Will do infectious workup and monitor closely. Qualifiers: Urinary tract infection type: acute cystitis Hematuria presence: without hematuria Qualified Code(s): N30.00 - Acute cystitis without hematuria (3) Discharge planning issues Current Visit: No Status: Acute Assessment and plan: PT/OT recs SNF/ECF. Pending placement. (4) Constipation Current Visit: Yes Status: Acute Assessment and plan: CT abdomen/pelvis notes fecal impaction. I did digital rectal exam today and there was no fecal impaction appreciated. This may have resolved after getting bowel prep. Qualifiers: Constipation type: other constipation type Qualified Code(s): K59.09 - Other constipation (5) DVT prophylaxis Current Visit: No Status: Acute Assessment and plan: SCD - Subjective Interval history: Patient had fever Tmax 100.5 overnight. No other events, no concerns by nursing. - Constitutional Vitals: Temp Pulse Resp BP Pulse Ox 98 F 94 17 138/81 92 04/20/17 19:06 04/20/17 19:06 04/20/17 19:06 04/20/17 19:06 04/20/17 19:06 General appearance: Present: A&O X 1, pleasant, no acute distress Exam: - Head Head exam: Present: atraumatic, normocephalic - Eye Eye exam: Present: PERRL, conjuntiva pink, sclera anicteric Pupils: Present: PERRL - Neck Neck exam general surgery: Present: supple, trachea midline. Absent: lymphadenopathy - Respiratory Respiratory exam: Present: CTAB. Absent: accessory muscle use, rales, rhonchi, wheezes - Cardiovascular Cardiovascular exam: Present: RRR, +S1, +S2. Absent: diastolic murmur, gallop, rubs, systolic murmur - GI/Abdominal GI/Abdominal exam: Present: normal bowel sounds, soft, no peritoneal signs. Absent: distended, tenderness - Extremities Exam Extremities exam: Present: warm, radial pulses palpable and symmetrical. Absent : calf tenderness, cyanotic, pedal edema - Neurological Exam Neurological exam: Present: CN II-XII intact, oriented X3, no focal deficits. Absent: pronater drift, facial droop, speech deficit - Skin Skin exam: Present: dry, intact Internal Medicine: Result - Labs CBC & Chem 7: 04/20/17 10:25 04/20/17 10:25 Labs: Short CBC 04/20/17 Range/Units 10:25 WBC 6.3 (4.3-11.1) K/mcL Hgb 13.0 (11.5-15.4) g/dL Hct 39.5 (35.3-44.9) % Plt Count 146 (140-400) K/mcL Neutrophils # 4.3 (1.6-8.9) K/mcL BMP 04/20/17 10:25 Sodium 136 Potassium 3.4 L Chloride 103 Carbon Dioxide 26 BUN 14 Creatinine 0.75 Glucose 121 H Calcium 8.6 - ABG Interpretation ABG results: PT/INR, D-dimer PT 12.0 Seconds (9.4-12.1) 04/16/17 23:33 - Impressions Impressions Chest X-Ray 04/20/17 09:14 IMPRESSION: No focal consolidation. Stable prominent aortic knob with wall calcifications dating back to 2013. D/ / Jovan Rees MD / Jovan Rees MD Interpreting Provider: Jovan Rees MD - VTE Documentation of Mechanical Device: Intermittent pneumatic compression device Consult Discharge Plan - Plan Referrals: Jay Jensen MD [Primary Care Provider] - 04/29/17 2:00 am
[2017-04-21] MEDS: cefTRIAXone 1,000 MG in Water for inj. (sterile) 10 ML IVP SCH (02:35)
[2017-04-21] MEDS: Ipratropium/Albuterol Neb 3 ML IH SCH ×4 (04:36→21:24)
[2017-04-21] MEDS: Multivit/Ca/Min/Fe/FA 1 TAB TABLET PO SCH (10:51)
[2017-04-21] MEDS: Aspirin Enteric Coated 81 MG Tablet PO SCH (10:51)
[2017-04-21] MEDS: Lactobacillus 1 EACH CAP.SPRINK PO SCH (10:51)
[2017-04-21] MEDS: Insulin LISPRO 300 UNITS/3 ML VIAL SQ SCH ×4 (10:51→22:27)
[2017-04-21] MEDS: Cholecalciferol (D-3) 1,000 UNIT TABLET PO SCH (10:51)
--- NOTE | 2017-04-21 20:49 | Internal Med Progress Note ---
Date of Encounter: 04/21/17 Time of Encounter: 13:46 - Assessment and plan (1) Dementia Current Visit: Yes Status: Acute Assessment and plan: Patient came from assisted living but she needs placement. Patient having difficulty with eating requiring assistance, also pockets food. Likely from progression of dementia. Will need to discuss with POA in regards to nutrition status and goals of care. Qualifiers: Dementia type: unspecified type Dementia behavioral disturbance: without behavioral disturbance Qualified Code(s): F03.90 - Unspecified dementia without behavioral disturbance (2) UTI (urinary tract infection) Current Visit: Yes Status: Acute Assessment and plan: Patient stable but did have fever overnight Tmax 100.5. Will repeat UA and urine culture. Will do infectious workup and monitor closely. Qualifiers: Urinary tract infection type: acute cystitis Hematuria presence: without hematuria Qualified Code(s): N30.00 - Acute cystitis without hematuria (3) Discharge planning issues Current Visit: No Status: Acute Assessment and plan: PT/OT recs SNF/ECF. Pending placement. (4) Constipation Current Visit: Yes Status: Acute Assessment and plan: CT abdomen/pelvis notes fecal impaction. I did digital rectal exam today and there was no fecal impaction appreciated. This may have resolved after getting bowel prep. Qualifiers: Constipation type: other constipation type Qualified Code(s): K59.09 - Other constipation (5) DVT prophylaxis Current Visit: No Status: Acute Assessment and plan: SCD - Subjective Interval history: No acute events. Patient is reported to be pocketing food in her mouth, possibly not swallowing them correctly. - Constitutional Vitals: Temp Pulse Resp BP Pulse Ox 98.2 F 98 16 151/86 93 04/21/17 16:35 04/21/17 16:35 04/21/17 16:35 04/21/17 16:35 04/21/17 16:35 General appearance: Present: A&O X 1, pleasant, no acute distress Exam: CVS: RRR Lungs: Diminished breath sounds at bases, clear to asucultation bilaterally Abd: NT/ND Ext: No edema Internal Medicine: Result - Labs CBC & Chem 7: 04/20/17 10:25 04/20/17 10:25 - ABG Interpretation ABG results: PT/INR, D-dimer PT 12.0 Seconds (9.4-12.1) 04/16/17 23:33 - VTE Documentation of Mechanical Device: Intermittent pneumatic compression device Consult Discharge Plan - Plan Referrals: Jay Jensen MD [Primary Care Provider] - 04/29/17 2:00 am
[2017-04-22] MEDS: cefTRIAXone 1,000 MG in Water for inj. (sterile) 10 ML IVP SCH (03:04)
[2017-04-22] MEDS: Ipratropium/Albuterol Neb 3 ML IH SCH ×4 (04:25→22:32)
[2017-04-22] MEDS: Insulin LISPRO 300 UNITS/3 ML VIAL SQ SCH ×4 (08:41→22:46)
[2017-04-22] MEDS: Cholecalciferol (D-3) 1,000 UNIT TABLET PO SCH (09:46)
[2017-04-22] MEDS: Aspirin Enteric Coated 81 MG Tablet PO SCH (09:46)
[2017-04-22] MEDS: Lactobacillus 1 EACH CAP.SPRINK PO SCH (09:46)
[2017-04-22] MEDS: Multivit/Ca/Min/Fe/FA 1 TAB TABLET PO SCH (09:46)
--- NOTE | 2017-04-22 23:04 | Internal Med Progress Note ---
Date of Encounter: 04/22/17 Time of Encounter: 11:02 - Assessment and plan (1) Dementia Current Visit: Yes Status: Acute Assessment and plan: Patient came from assisted living but she needs placement. Patient having difficulty with eating requiring assistance, also pockets food. Likely from progression of dementia. Will need to discuss with POA in regards to nutrition status and goals of care. Qualifiers: Dementia type: unspecified type Dementia behavioral disturbance: without behavioral disturbance Qualified Code(s): F03.90 - Unspecified dementia without behavioral disturbance (2) UTI (urinary tract infection) Current Visit: Yes Status: Acute Assessment and plan: Patient afebrile, does not appear septic, hemodynamically stable. She has completed a course of Rocephin, will DC today. Qualifiers: Urinary tract infection type: acute cystitis Hematuria presence: without hematuria Qualified Code(s): N30.00 - Acute cystitis without hematuria (3) Discharge planning issues Current Visit: No Status: Acute Assessment and plan: PT/OT recs SNF/ECF. Pending placement. (4) Constipation Current Visit: Yes Status: Acute Assessment and plan: CT abdomen/pelvis notes fecal impaction. I did digital rectal exam today and there was no fecal impaction appreciated. This may have resolved after getting bowel prep. Qualifiers: Constipation type: other constipation type Qualified Code(s): K59.09 - Other constipation (5) DVT prophylaxis Current Visit: No Status: Acute Assessment and plan: SCD - Subjective Interval history: No acute events. Patient is reported to be pocketing food in her mouth, possibly not swallowing them correctly. - Constitutional Vitals: Temp Pulse Resp BP Pulse Ox 99.7 F H 88 14 119/64 94 04/22/17 20:55 04/22/17 20:55 04/22/17 22:33 04/22/17 20:55 04/22/17 22:33 General appearance: Present: A&O X 1, pleasant, no acute distress Exam: CVS: RRR Lungs: CTAB Ext: no edema Internal Medicine: Result - Labs CBC & Chem 7: 04/20/17 10:25 04/20/17 10:25 - ABG Interpretation ABG results: PT/INR, D-dimer PT 12.0 Seconds (9.4-12.1) 04/16/17 23:33 - VTE Documentation of Mechanical Device: Intermittent pneumatic compression device Consult Discharge Plan - Plan Referrals: Jay Jensen MD [Primary Care Provider] - 04/29/17 2:00 am
[2017-04-23] MEDS: Ipratropium/Albuterol Neb 3 ML IH SCH ×4 (04:52→21:42)
[2017-04-23] MEDS: Insulin LISPRO 300 UNITS/3 ML VIAL SQ SCH ×4 (10:16→21:19)
[2017-04-23] MEDS: Aspirin Enteric Coated 81 MG Tablet PO SCH (10:16)
[2017-04-23] MEDS: Cholecalciferol (D-3) 1,000 UNIT TABLET PO SCH (10:16)
[2017-04-23] MEDS: Lactobacillus 1 EACH CAP.SPRINK PO SCH (10:17)
[2017-04-23] MEDS: Multivit/Ca/Min/Fe/FA 1 TAB TABLET PO SCH (10:17)
--- NOTE | 2017-04-23 21:16 | Internal Med Progress Note ---
Date of Encounter: 04/23/17 Time of Encounter: 14:12 - Assessment and plan (1) Discharge planning issues Current Visit: No Status: Acute Assessment and plan: Pending placement. (2) Dementia Current Visit: Yes Status: Acute Assessment and plan: Dementia is progressing, patient now having difficulty with feeding. I discussed this with her daughter and she is open to a Palliative consultation in regards to goals of care. Qualifiers: Dementia type: unspecified type Dementia behavioral disturbance: without behavioral disturbance Qualified Code(s): F03.90 - Unspecified dementia without behavioral disturbance (3) UTI (urinary tract infection) Current Visit: Yes Status: Acute Assessment and plan: Patient afebrile, does not appear septic, hemodynamically stable. She has completed a course of Rocephin, will DC today. Qualifiers: Urinary tract infection type: acute cystitis Hematuria presence: without hematuria Qualified Code(s): N30.00 - Acute cystitis without hematuria (4) Constipation Current Visit: Yes Status: Acute Assessment and plan: CT abdomen/pelvis notes fecal impaction. I did digital rectal exam today and there was no fecal impaction appreciated. This may have resolved after getting bowel prep. Qualifiers: Constipation type: other constipation type Qualified Code(s): K59.09 - Other constipation (5) DVT prophylaxis Current Visit: No Status: Acute Assessment and plan: SCD - Subjective Interval history: No acute events. Yesterday patient is reported to be pocketing food in her mouth, possibly not swallowing them correctly. Nursing still having difficulty with feedings. - Constitutional Vitals: Temp Pulse Resp BP Pulse Ox 99.3 F 98 19 118/73 92 04/23/17 19:31 04/23/17 19:31 04/23/17 19:31 04/23/17 19:31 04/23/17 19:31 General appearance: Present: A&O X 1, pleasant, no acute distress Exam: CVS: RRR Lungs: CTAB Ext: No edema Internal Medicine: Result - Labs CBC & Chem 7: 04/20/17 10:25 04/20/17 10:25 - ABG Interpretation ABG results: PT/INR, D-dimer PT 12.0 Seconds (9.4-12.1) 04/16/17 23:33 - VTE Documentation of Mechanical Device: Intermittent pneumatic compression device Consult Discharge Plan - Plan Referrals: Jay Jensen MD [Primary Care Provider] - 04/29/17 2:00 am
[2017-04-24] MEDS: Ipratropium/Albuterol Neb 3 ML IH SCH ×4 (04:13→21:33)
[2017-04-24] MEDS: Insulin LISPRO 300 UNITS/3 ML VIAL SQ SCH ×2 (07:23→13:09)
[2017-04-24] MEDS: Multivit/Ca/Min/Fe/FA 1 TAB TABLET PO SCH (07:23)
[2017-04-24] MEDS: Lactobacillus 1 EACH CAP.SPRINK PO SCH (07:23)
[2017-04-24] MEDS: Aspirin Enteric Coated 81 MG Tablet PO SCH (07:23)
[2017-04-24] MEDS: Cholecalciferol (D-3) 1,000 UNIT TABLET PO SCH (07:23)
[2017-04-24 08:15] LABS: Procalcitonin 0.09 ng/mL (<=0.10)
[2017-04-24 08:27] LABS: Mycoplasma pneumoniae IgG 0.13 U/L (<=0.09)
--- NOTE | 2017-04-24 11:13 | Palliative - Consult Note ---
Date of Encounter: 04/24/17 Time of Encounter: 09:30 - Assessment and Plan (1) Counseling regarding advanced care planning and goals of care Current Visit: Yes Status: Acute Assessment and plan: Patient's daughter did return my phone call. She reports a dramatic decline in patients condition over the past few months. Discussed goals of care and current clinical status, as well as nutritional issues and inability to participate with speech therapy. Daughter states that family all feels she is overall declining from dementia - they do not want any type of artificial nutrition or feeding tube. Discussed code status at length and daughter desires transition to DNRCC. No resuscitative measures. State form completed and placed in record. Lucille states she will be speaking with brother regarding another EC as [facility] has no bed. She had a 18 month penalty on Medicaid which isn't up until August - I told daughter that she could be evaluated for hospice at [facility] if her declined continues. She would be private pay however, until Medicaid in place. Anticipate d/c soon. (2) Dysphagia Current Visit: Yes Status: Acute Assessment and plan: Continue safe diet as possible. Family aware of risk for pocketing and aspiration. Unable to participate with speech therapy. Qualifiers: Dysphagia type: unspecified Qualified Code(s): R13.10 - Dysphagia, unspecified (3) Dementia Current Visit: Yes Status: Acute Qualifiers: Dementia type: unspecified type Dementia behavioral disturbance: without behavioral disturbance Qualified Code(s): F03.90 - Unspecified dementia without behavioral disturbance Palliative-CN HPI - Data of Consult Consult date: 04/24/17 Requesting Physician: Sarah Blankenship Primary Care Provider: Jay Jensen MD - Consult Narrative History of present illness: Ms. Smith is a 89 year old female with a history of dementia, who was admitted after she was found at assisted living with an unwitnessed fall. Other history includes HTN, and DIabetes. Labs/xrays stable. Patient is unable to articulate medical history and no family present, so most information taken from chart review. Have left message for daughter JUAN F Adkins to return my call. At my visit, she is awake and alert, appears comfortable. Follows simple commands. Cannot articulate needs, most speech not understandable. CC: Sarah Blankenship Past Med Surg Social Fam HX - Past Medical History Medical history: dementia, diabetes, hyperlipidemia, hypertension Psychiatric history: no psych history - Past Surgical History Surgical History: hysterectomy - Social History Smoking Status: Never smoker Smokeless Tobacco Status: No Alcohol use: none Drug use: none - Family History Father History Unknown: Yes Living Status: Hx Family Cardiac Disorders: (Stroke) Mother History Unknown: Yes Family Member Ethnicity: Non- Living Status: Medications and Allergies Aspirin Enteric Coated [Aspirin EC] 81 mg PO DAILY 10/29/15 [History] Cholecalciferol (D-3) [Vitamin D] 1,000 unit PO DAILY 10/29/15 [History] L. Acidophilus/Pectin, [place] [Acidophilus Probiotic Capsule] 1 cap PO DAILY 02/03 [History] Multivitamin [Multi-Day Vitamins] 1 tab PO DAILY 10/29/15 [History] Polyethylene Glycol 3350 [MiraLAX] 17 gm PO DAILY 10/29/15 [History] Acetaminophen [Tylenol] 500 mg PO Q6HR PRN #20 tablet 12/11/16 [Rx] Citalopram [CeleXA] 20 mg PO DAILY 04/17/17 [History] Donepezil [Aricept] 5 mg PO DAILY 04/17/17 [History] LORazepam [Ativan] 0.5 mg PO HS PRN 04/17/17 [History] Pravastatin Sodium [Pravachol] 40 mg PO HS 04/17/17 [History] 3 Allergy/AdvReac Type Severity Reaction Status Date / Time promethazine [From Phenergan] Allergy See Verified 04/16/17 22:51 Comments memantine AdvReac Shakiness Verified 07/05/16 22:16 ROS unobtainable: due to mental status Palliative Care-Exam - Constitutional Vitals: Temp Pulse Resp BP Pulse Ox 97.6 F 93 14 118/75 92 04/24/17 07:06 04/24/17 07:06 04/24/17 10:39 04/24/17 07:06 04/24/17 10:39 General appearance: Present: no acute distress - Head Head Exam: Present: normal inspection, normocephalic - Eye Eye exam: Present: normal appearance, PERRL - Respiratory Respiratory exam: Present: decreased breath sounds, CTAB - Cardiovascular Cardiovascular exam: Present: +S1, +S2 - GI/Abdominal Exam GI/Abdominal exam: Present: normal bowel sounds, soft - Extremities Exam Extremities exam: Present: normal capillary refill, normal inspection - Neurological Exam Additional comments: Patient alert to name only, can follow simple one step commands. ESQUEDA. Most of speech not understandable , mumbles frequently when asked questions, can answer yes/no clearly. Internal Medicine - CN: Reslt - Labs CBC & Chem 7: 04/20/17 10:25 04/20/17 10:25 - ABG Interpretation ABG results: PT/INR, D-dimer PT 12.0 Seconds (9.4-12.1) 04/16/17 23:33 Consult Discharge Plan - Plan Referrals: Jay Jensen MD [Primary Care Provider] - 04/29/17 2:00 am Palliative Quality Palliative Quality: Screen for Code Status: Yes, Screen for Goals of Care: Yes, Screen for Pain: Yes, If Pain Regimen Started, Initiate Bowel Regimen: Yes, Screen for Nausea/Vomitting: Yes Code Status: 04/24/17 11:09 DNR [Resuscitation Status: Active] [RES] Routine Comment: Resuscitation Status: DNR-Comfort Care
--- NOTE | 2017-04-24 21:09 | Internal Med Progress Note ---
Date of Encounter: 04/24/17 Time of Encounter: 13:06 - Assessment and plan (1) Discharge planning issues Current Visit: No Status: Acute Assessment and plan: Pending placement. (2) Dementia Current Visit: Yes Status: Acute Assessment and plan: Palliative service following, family utilizing resources for patient's current condition. Qualifiers: Dementia type: unspecified type Dementia behavioral disturbance: without behavioral disturbance Qualified Code(s): F03.90 - Unspecified dementia without behavioral disturbance (3) UTI (urinary tract infection) Current Visit: Yes Status: Resolved Assessment and plan: Patient afebrile, does not appear septic, hemodynamically stable. She has completed a course of Rocephin. Qualifiers: Urinary tract infection type: acute cystitis Hematuria presence: without hematuria Qualified Code(s): N30.00 - Acute cystitis without hematuria (4) Constipation Current Visit: Yes Status: Acute Assessment and plan: CT abdomen/pelvis notes fecal impaction. I did digital rectal exam today and there was no fecal impaction appreciated. This may have resolved after getting bowel prep. Qualifiers: Constipation type: other constipation type Qualified Code(s): K59.09 - Other constipation (5) DVT prophylaxis Current Visit: No Status: Acute Assessment and plan: SCD - Subjective Interval history: No acute events. Son present in room - Constitutional Vitals: Temp Pulse Resp BP Pulse Ox 98.5 F 97 18 126/83 92 04/24/17 19:05 04/24/17 19:05 04/24/17 19:05 04/24/17 19:05 04/24/17 19:05 General appearance: Present: A&O X 1, pleasant, no acute distress Exam: CVS: RRR Lungs: CTAB Ext: no edema Internal Medicine: Result - Labs CBC & Chem 7: 04/20/17 10:25 04/20/17 10:25 - ABG Interpretation ABG results: PT/INR, D-dimer PT 12.0 Seconds (9.4-12.1) 04/16/17 23:33 - VTE Documentation of Mechanical Device: Intermittent pneumatic compression device Consult Discharge Plan - Plan Referrals: Jay Jensen MD [Primary Care Provider] - 04/29/17 2:00 am
[2017-04-25] MEDS: Ipratropium/Albuterol Neb 3 ML IH SCH ×3 (04:06→15:05)
--- NOTE | 2017-04-25 08:44 | Discharge Summary ---
Date of Encounter: 04/25/17 Time of Encounter: 08:44 - Discharge Diagnosis (1) Dementia Priority: Primary Status: Acute Qualifiers: Dementia type: unspecified type Dementia behavioral disturbance: without behavioral disturbance Qualified Code(s): F03.90 - Unspecified dementia without behavioral disturbance (2) Discharge planning issues Priority: Secondary Status: Acute (3) UTI (urinary tract infection) Priority: Secondary Status: Resolved Qualifiers: Urinary tract infection type: acute cystitis Hematuria presence: without hematuria Qualified Code(s): N30.00 - Acute cystitis without hematuria (4) Constipation Priority: Secondary Status: Acute Qualifiers: Constipation type: other constipation type Qualified Code(s): K59.09 - Other constipation (5) DVT prophylaxis Priority: Secondary Status: Acute - Discharge Medications Prescriptions: LORazepam [Ativan] 0.5 mg PO HS PRN #10 tablet PRN Reason: Anxiety Home Medications: Aspirin Enteric Coated [Aspirin EC] 81 mg PO DAILY 10/29/15 [History] Cholecalciferol (D-3) [Vitamin D] 1,000 unit PO DAILY 10/29/15 [History] L. Acidophilus/Pectin, [place] [Acidophilus Probiotic Capsule] 1 cap PO DAILY 02/03 [History] Multivitamin [Multi-Day Vitamins] 1 tab PO DAILY 10/29/15 [History] Polyethylene Glycol 3350 [MiraLAX] 17 gm PO DAILY 10/29/15 [History] Acetaminophen [Tylenol] 500 mg PO Q6HR PRN #20 tablet 12/11/16 [Rx] Citalopram [CeleXA] 20 mg PO DAILY 04/17/17 [History] Donepezil [Aricept] 5 mg PO DAILY 04/17/17 [History] Pravastatin Sodium [Pravachol] 40 mg PO HS 04/17/17 [History] Acetaminophen [Tylenol] 650 mg PO Q6HR PRN tablet 04/25/17 [Rx] LORazepam [Ativan] 0.5 mg PO HS PRN #10 tablet 04/25/17 [Rx] Allergies/Adverse Reactions: 3 Allergy/AdvReac Type Severity Reaction Status Date / Time promethazine [From Phenergan] Allergy See Verified 04/16/17 22:51 Comments memantine AdvReac Shakiness Verified 07/05/16 22:16 Date of admission: 04/17/17 02:41 Primary care physician: Jay Jensen MD Consults: 04/23/17 13:21 Consult to Speech Therapy [CONS] Routine Comment: Evaluate, develop and implement POC Reason for Consult: coughing when swallowing and not swallowing Call Completed: No 04/23/17 14:14 Consult to Palliative Care [CONS] Routine Comment: Consulting Provider: Palliative Care Norma Reason for Consult: Advancing dementia, poor PO Call Completed: Yes 04/17/17 02:44 Consult to Occupational Therapy [CONS] Routine Comment: Evaluate, develop and implement POC Reason for Consult: Weakness, Fall Consult to Physical Therapy [CONS] Routine Comment: Evaluate, develop and implement POC Reason for Consult: Weakness, Fall Consult to Garment Form Assembler [CONS] Routine Reason for SW Consult: Needs placement 04/17/17 03:28 Consult to Garment Form Assembler [CONS] Routine Reason for SW Consult: altered mental status currently assisted living 04/17/17 12:45 Consult to Speech Therapy [CONS] Stat Comment: Evaluate, develop and implement POC Reason for Consult: Per family, pt is at a point with her dementia that she chews but forgets to swallow. Call Completed: Yes Discharging clinician: Effie Gleason - Patient Status Disposition: Transfer SNF Condition: Fair Functional capacity at discharge: bed bound Overall status at discharge: patient is not back to baseline - Discharge Instructions Follow Up With: Jay Jensen MD [Primary Care Provider] - 04/29/17 2:00 am - Diet and Activity Activity: as per physical therapy Diet: other (per speech therapy recommendations. Currently Ensure only, 4x a day with close monitoring. ) Hospital course: Ms. Smith is a 89 year old female with severe dementia [facility]itnessed [facility]. Pt is demented and no family members at bedside. Hx is from transfer documentation. Pt has fall and was found on floor on day of admission. Not know for how long pt is down. Pt looks comfortable when I on initial exam. Awake, alert but totally disoriented. Seems no pain on physical exam. Patient was admitted for monitoring, placed on fall precautions. PT/OT and SW were consulted as patient was likely needed to be placed to facility. CT head, neck and xray of chest and pelvis were negative for acute fracture. Patient had UA with possible UTI, hard to tell if patient was symptomatic because of her inability to communicate symptoms. She was empircally treated with Rocephin. CT abdomen showed rectal impaction, manual exam showed no impaction and may have resolved while she was given laxitives in hospital. PT/OT recommended NSF. Patient did have difficulty with eating and swallowing. Initially speech therapy tried to get pureed foods but patient kept pocketing foods. She was unable to feed herself. This is likely from advancing dementia. Her daughter and son have noted this was progressive and they did figure this was approaching. Palliative service was consulted. Per family's request, patient was made DNR CC. She was able to be placed to facility and she was discharged without acute issue. She was tried on Ensure drinks only and is only able to handle some of the liquids. - Time Spent with Patient Total time spent providing and/or coordinating discharge services: - Constitutional Vitals: Temp Pulse Resp BP Pulse Ox 98.1 F 102 16 107/72 91 04/25/17 06:51 04/25/17 06:51 04/25/17 06:51 04/25/17 06:51 04/25/17 06:51 General appearance: Present: A&O X 0, pleasant, no acute distress. Absent: answers questions appropriately - Head Head exam: Present: atraumatic, normocephalic - Eye Eye exam: Present: PERRL, conjuntiva pink, sclera anicteric Pupils: Present: PERRL - Neck Neck exam general surgery: Present: supple, trachea midline. Absent: lymphadenopathy - Respiratory Respiratory exam: Present: CTAB. Absent: accessory muscle use, rales, rhonchi, wheezes - Cardiovascular Cardiovascular exam: Present: RRR, +S1, +S2. Absent: diastolic murmur, gallop, rubs, systolic murmur - GI/Abdominal GI/Abdominal exam: Present: normal bowel sounds, soft, no peritoneal signs. Absent: distended, tenderness - Extremities Exam Extremities exam: Present: warm, radial pulses palpable and symmetrical. Absent : calf tenderness, cyanotic, pedal edema - Neurological Exam Neurological exam: Present: CN II-XII intact, oriented X3, no focal deficits. Absent: pronater drift, facial droop, speech deficit - Skin Skin exam: Present: dry, intact - VTE Documentation of Mechanical Device: Intermittent pneumatic compression device
--- NOTE | 2017-04-25 08:45 | Physician Discharge Referral ---
[facility] Referral Info Provider in Charge after Transfer: PCP Institutional Level of Care: Skilled - Diagnosis (1) UTI (urinary tract infection) Priority: Primary Status: Resolved (2) Discharge planning issues Priority: Secondary Status: Acute (3) Dementia Priority: Secondary Status: Acute (4) Constipation Priority: Secondary Status: Acute (5) DVT prophylaxis Priority: Secondary Status: Acute - Transfer Medications Prescriptions: LORazepam [Ativan] 0.5 mg PO HS PRN #10 tablet PRN Reason: Anxiety Home Medications: Aspirin Enteric Coated [Aspirin EC] 81 mg PO DAILY 10/29/15 [History] Cholecalciferol (D-3) [Vitamin D] 1,000 unit PO DAILY 10/29/15 [History] L. Acidophilus/Pectin, [place] [Acidophilus Probiotic Capsule] 1 cap PO DAILY 02/03 [History] Multivitamin [Multi-Day Vitamins] 1 tab PO DAILY 10/29/15 [History] Polyethylene Glycol 3350 [MiraLAX] 17 gm PO DAILY 10/29/15 [History] Acetaminophen [Tylenol] 500 mg PO Q6HR PRN #20 tablet 12/11/16 [Rx] Citalopram [CeleXA] 20 mg PO DAILY 04/17/17 [History] Donepezil [Aricept] 5 mg PO DAILY 04/17/17 [History] Pravastatin Sodium [Pravachol] 40 mg PO HS 04/17/17 [History] Acetaminophen [Tylenol] 650 mg PO Q6HR PRN tablet 04/25/17 [Rx] LORazepam [Ativan] 0.5 mg PO HS PRN #10 tablet 04/25/17 [Rx] Allergies/Adverse Reactions: 3 Allergy/AdvReac Type Severity Reaction Status Date / Time promethazine [From Phenergan] Allergy See Verified 04/16/17 22:51 Comments memantine AdvReac Shakiness Verified 07/05/16 22:16 - Respiratory Orders Smoking Cessation: Smoking cessation has been advised. For more information, call the [employer] Tobacco Quit Line at 0-325-OJDR-NOW. - Ancillary Orders May use pressure relief devices daily prn - Advance Directives Code Status: DNR-Comfort Care - Mobility Orders Bedrest - Rehabiliation Orders Rehab Potential: Poor Rehab Orders: Evaluation for Speech Therapy - Treatments Skin tear care topically daily PRN per policy, May check for fecal impaction rectally daily PRN - Diet Orders Pureed (Ensure only if not able to handle pureed diet.) House Supplement per Dietary: Ensure 4x per day CERTIFICATION: I certify that the transfer of the above named patient to an Extended Care Facility is necessary for the continuing treatment of the diagnosis listed. The above information is true and accurate reflection of patient's current condition. Confidential - Redisclosure prohibited without a patient's written consent.
[2017-04-25] MEDS: Multivit/Ca/Min/Fe/FA 1 TAB TABLET PO SCH (09:43)
[2017-04-25] MEDS: Cholecalciferol (D-3) 1,000 UNIT TABLET PO SCH (09:43)
[2017-04-25] MEDS: Aspirin Enteric Coated 81 MG Tablet PO SCH (09:44)
[2017-04-25] MEDS: Lactobacillus 1 EACH CAP.SPRINK PO SCH (09:44)
[2017-04-25 10:31] VITALS: BP 130/74
== END 2017-04-25 16:28 | DRG 884 ==
LOC: EMEROO 22:50 → 3ANU 22:50
PROVIDERS: ADMIT Internal Medicine; ATTEND Internal Medicine